=== PATIENT | male | born 1980 | race Hispanic/Latino ===

== ENCOUNTER 2021-02-18 09:57 | Emergency (ER) | payer OTHER ==
[~2021-02-18] VITALS: Ht 154.9 cm; Wt 58.0 kg
[2021-02-18] MEDS ORDERED: MOTRIN400 MG/TAB PO (11:19)
[2021-02-18 11:20] VITALS: BP 128/70
== END 2021-02-18 11:35 | disposition home or self-care (01) | DRG 556 ==
LOC: ED 09:57
DX: M25.511 Pain in right shoulder (principal); W20.8XXA Other cause of strike by thrown, projected or falling object, initial encounter; Y92.89 Other specified places as the place of occurrence of the external cause; Y99.0 Civilian activity done for income or pay